=== PATIENT | female | born 1985 | race Hispanic/Latino ===

== ENCOUNTER 2018-10-05 02:42 | Inpatient (IN) | payer OTHER ==
[2018-10-05] VITALS (14 sets, daily range): BP systolic 94–135; BP diastolic 36–81
[~2018-10-05] VITALS: Ht 157.5 cm; Wt 101.8 kg
[2018-10-05 03:21] LABS: BASOPHILS % (AUTO) 0.7 % (0.0-5.0); EOSINOPHILS % (AUTO) 2.2 % (0.0-8.0); HEMATOCRIT 36.2 % (36-48); LYMPHOCYTES % (AUTO) 26.5 % (21.0-51.0); MEAN CORPUSCULAR HEMOGLOBIN 28.5 pg (27.0-33.0); MEAN CORPUSCULAR HGB CONC 34.1 g/dL (32.0-36.0); MEAN CORPUSCULAR VOLUME 83.4 fL (79-99); MONOCYTES % (AUTO) 6.8 % (3.0-13.0); NEUTROPHILS % (AUTO) 63.8 % (40.0-77.0); PLATELET COUNT (AUTO) 272 K/uL (130-400); RED BLOOD CELL COUNT(AUTO) 4.34 MIL/uL (4.00-5.50); RED CELL DISTRIBUTION WIDTH 13.4 % (11.0-15.5); WHITE BLOOD COUNT (AUTO) 10.3 K/uL (4.8-10.8)
[2018-10-05 03:28] LABS: CREATININE 0.9 mg/dL (0.5-1.5); POTASSIUM 4.5 mmol/L (3.5-5.1)
[2018-10-05 03:34] LABS: ALBUMIN 2.9 g/dL (3.5-5.0); TOTAL PROTEIN, SERUM 6.8 g/dL (6.0-8.3)
[2018-10-05 03:36] LABS: BILIRUBIN,TOTAL 0.4 mg/dL (0.2-1.0)
[2018-10-05 03:53] LABS: APPEARANCE,URINE Clear (CLEAR); BILIRUBIN,URINE Negative (NEGATIVE); COLOR,URINE Yellow (YELLOW); GLUCOSE, URINE (UA) Negative (NEGATIVE); KETONES,URINE Negative (NEGATIVE); LEUKOCYTE ESTERASE ,URINE Small (NEGATIVE); NITRATE,URINE Negative (NEGATIVE); OCCULT BLOOD,URINE Negative (NEGATIVE); PH,URINE 6.5 (5.0-8.0); PROTEIN,URINE Negative (NEGATIVE)
[2018-10-05 04:01] LABS: AMPHET/METH SCREEN,URINE NEGATIVE (NEGATIVE); BARBITURATE SCREEN, URINE NEGATIVE (NEGATIVE); BENZODIAZEPINES SCREEN,URINE NEGATIVE (NEGATIVE); CANNABINOID SCREEN,URINE NEGATIVE (NEGATIVE); COCAINE SCREEN,URINE NEGATIVE (NEGATIVE); OPIATE SCREEN,URINE NEGATIVE (NEGATIVE); PHENCYCLIDINE SCREEN,URINE NEGATIVE (NEGATIVE)
[2018-10-05 04:03] LABS: HCG,QUAL RESULT NEGATIVE (NEGATIVE)
[2018-10-05 04:07] LABS: BACTERIA,URINE None Seen /HPF (None Seen); RBC,URINE None Seen /HPF (0-1)
[2018-10-05] MEDS ORDERED: FOSPHENYTOIN SODIUM 500 MG/10ML VIAL IJ ONE (05:24)
[2018-10-05] MEDS ORDERED: DEXAMETHASONE SOD PHOSPHATE 10MG/ML 1ML VIAL ONE (05:25)
[2018-10-05] MEDS ORDERED: MORPHINE SULFATE 2 MG/ML 1ML SYG IV PRN (05:45)
[2018-10-05] MEDS: LEVETIRACETAM 1,000 MG in SODIUM CHLORIDE 0.9% 100 ML IV SCH ×3 (06:00→21:06)
[2018-10-05 06:01] LABS: INR 0.92 (0.85-1.15); PARTIAL THROMBOPLASTIN TIME 23.3 SEC (26.3-35.5); PROTHROMBIN TIME 9.7 SEC (9.6-11.6)
[2018-10-05] MEDS ORDERED: GADODIAMIDE 10 MMOL/20 ML ML IV ONE (08:03)
[2018-10-05] MEDS ORDERED: FAMOTIDINE/PF 20 MG/2 ML VIAL IV SCH (09:00)
[2018-10-05] MEDS ORDERED: DEXAMETHASONE SOD PHOSPHATE 4 MG/ML 1ML VIAL IVP SCH (09:15)
[2018-10-05] MEDS: INSULIN HUMULIN R 100 UNIT/ML 3ML SQ SCH ×3 (12:00→23:07)
[2018-10-05] MEDS ORDERED: COMPOUND IV MISC 1 EACH IVSOLN MISC PRN (12:15)
[2018-10-05] MEDS: CEFTRIAXONE SODIUM 2 GM VIAL IVP SCH (14:55)
[2018-10-05] MEDS: ENOXAPARIN SODIUM 40 MG/0.4 ML SYRINGE SQ SCH (14:55)
[2018-10-05] MEDS: LACTATED RINGERS 1000ML 1,000 ML IV SCH (14:56)
[2018-10-05] MEDS: PHENYTOIN SODIUM 100 MG ERCAP PO SCH ×2 (14:57→20:22)
[2018-10-05] MEDS: DEXAMETHASONE SOD PHOSPHATE 4 MG/ML 1ML VIAL IVP SCH ×3 (14:57→23:04)
[2018-10-05] MEDS: FAMOTIDINE 20MG TAB 20 MG TAB PO SCH (20:22)
[2018-10-05] MEDS: PROMETHAZINE/CODEINE 6.25-10MG/5ML CUP PO PRN (21:47)
[2018-10-06] VITALS (19 sets, daily range): BP systolic 97–138; BP diastolic 41–85
[2018-10-06] MEDS: LACTATED RINGERS 1000ML 1,000 ML IV SCH ×3 (04:18→20:41)
[2018-10-06 04:27] LABS: CREATININE 0.7 mg/dL (0.5-1.5); POTASSIUM 4.1 mmol/L (3.5-5.1)
[2018-10-06 04:32] LABS: HEMATOCRIT 36.2 % (36-48); MEAN CORPUSCULAR HEMOGLOBIN 28.1 pg (27.0-33.0); MEAN CORPUSCULAR HGB CONC 33.4 g/dL (32.0-36.0); MEAN CORPUSCULAR VOLUME 84.1 fL (79-99); PLATELET COUNT (AUTO) 314 K/uL (130-400); RED BLOOD CELL COUNT(AUTO) 4.31 MIL/uL (4.00-5.50); RED CELL DISTRIBUTION WIDTH 13.9 % (11.0-15.5); WHITE BLOOD COUNT (AUTO) 13.5 K/uL (4.8-10.8)
[2018-10-06] MEDS: DEXAMETHASONE SOD PHOSPHATE 4 MG/ML 1ML VIAL IVP SCH ×4 (05:05→23:28)
[2018-10-06] MEDS: INSULIN HUMULIN R 100 UNIT/ML 3ML SQ SCH ×4 (05:05→20:45)
[2018-10-06] MEDS: LEVETIRACETAM 1,000 MG in SODIUM CHLORIDE 0.9% 100 ML IV SCH ×3 (05:05→20:38)
[2018-10-06 05:18] LABS: HEMOGLOBIN A1C 5.4 % (4.0-6.0)
[2018-10-06] MEDS: ENOXAPARIN SODIUM 40 MG/0.4 ML SYRINGE SQ SCH ×2 (09:00→11:06)
[2018-10-06] MEDS: FAMOTIDINE 20MG TAB 20 MG TAB PO SCH ×2 (11:06→20:37)
[2018-10-06] MEDS: PHENYTOIN SODIUM 100 MG ERCAP PO SCH ×3 (11:07→20:38)
[2018-10-06] MEDS: ALBUTEROL SULFATE 0.083% 2.5 MG/3 ML INH IH SCH ×3 (12:33→23:20)
[2018-10-06] MEDS: IPRATROPIUM 0.5 MG/2.5 ML INH IH SCH ×3 (12:33→23:20)
[2018-10-06] MEDS: CEFTRIAXONE SODIUM 2 GM VIAL IVP SCH (13:15)
[2018-10-06] MEDS: PROMETHAZINE/CODEINE 6.25-10MG/5ML CUP PO PRN (20:38)
[2018-10-07] VITALS (29 sets, daily range): BP systolic 94–143; BP diastolic 41–97
[2018-10-07 04:03] LABS: BASOPHILS % (AUTO) 0.1 % (0.0-5.0); HEMATOCRIT 35.5 % (36-48); LYMPHOCYTES % (AUTO) 9.6 % (21.0-51.0); MEAN CORPUSCULAR HGB CONC 33.2 g/dL (32.0-36.0); MEAN CORPUSCULAR VOLUME 84.1 fL (79-99); MONOCYTES % (AUTO) 2.1 % (3.0-13.0); NEUTROPHILS % (AUTO) 88.2 % (40.0-77.0); PLATELET COUNT (AUTO) 291 K/uL (130-400); RED BLOOD CELL COUNT(AUTO) 4.22 MIL/uL (4.00-5.50)
[2018-10-07 04:22] LABS: CREATININE 0.7 mg/dL (0.5-1.5); INR 0.98 (0.85-1.15); MAGNESIUM 2.2 mg/dL (1.80-2.40); PARTIAL THROMBOPLASTIN TIME 28.2 SEC (26.3-35.5); PHOSPHORUS 4.7 mg/dL (2.5-4.9); PROTHROMBIN TIME 10.3 SEC (9.6-11.6)
[2018-10-07] MEDS: LEVETIRACETAM 1,000 MG in SODIUM CHLORIDE 0.9% 100 ML IV SCH ×3 (05:16→20:51)
[2018-10-07] MEDS: DEXAMETHASONE SOD PHOSPHATE 4 MG/ML 1ML VIAL IVP SCH ×4 (05:16→23:25)
[2018-10-07] MEDS: INSULIN HUMULIN R 100 UNIT/ML 3ML SQ SCH ×4 (05:26→20:52)
[2018-10-07] MEDS: IPRATROPIUM 0.5 MG/2.5 ML INH IH SCH ×4 (06:34→23:25)
[2018-10-07] MEDS: ALBUTEROL SULFATE 0.083% 2.5 MG/3 ML INH IH SCH ×4 (06:34→23:26)
[2018-10-07] MEDS: PHENYTOIN SODIUM 100 MG ERCAP PO SCH ×3 (09:30→20:51)
[2018-10-07] MEDS: FAMOTIDINE 20MG TAB 20 MG TAB PO SCH ×2 (09:31→20:51)
[2018-10-07] MEDS: ENOXAPARIN SODIUM 40 MG/0.4 ML SYRINGE SQ SCH (09:31)
[2018-10-07] MEDS: CEFAZOLIN SODIUM 1 GM VIAL IVP SCH (11:30)
[2018-10-07] MEDS: CEFTRIAXONE SODIUM 2 GM VIAL IVP SCH (13:04)
[2018-10-07] MEDS: PROMETHAZINE/CODEINE 6.25-10MG/5ML CUP PO PRN ×2 (16:35→21:24)
[2018-10-07] MEDS: LACTATED RINGERS 1000ML 1,000 ML IV SCH (19:05)
[2018-10-08] VITALS (27 sets, daily range): BP systolic 87–155; BP diastolic 47–86
[2018-10-08] MEDS: LACTATED RINGERS 1000ML 1,000 ML IV SCH (03:11)
[2018-10-08 03:39] LABS: HEMATOCRIT 35.6 % (36-48); MEAN CORPUSCULAR HGB CONC 33.3 g/dL (32.0-36.0); MEAN CORPUSCULAR VOLUME 84.1 fL (79-99); PLATELET COUNT (AUTO) 298 K/uL (130-400); RED BLOOD CELL COUNT(AUTO) 4.23 MIL/uL (4.00-5.50); RED CELL DISTRIBUTION WIDTH 14.1 % (11.0-15.5); WHITE BLOOD COUNT (AUTO) 11.1 K/uL (4.8-10.8)
[2018-10-08 03:46] LABS: CREATININE 0.7 mg/dL (0.5-1.5); POTASSIUM 4.2 mmol/L (3.5-5.1)
[2018-10-08 03:57] LABS: PARTIAL THROMBOPLASTIN TIME 26.7 SEC (26.3-35.5); PROTHROMBIN TIME 10.5 SEC (9.6-11.6)
[2018-10-08] MEDS: LEVETIRACETAM 1,000 MG in SODIUM CHLORIDE 0.9% 100 ML IV SCH ×3 (05:17→22:40)
[2018-10-08] MEDS: DEXAMETHASONE SOD PHOSPHATE 4 MG/ML 1ML VIAL IVP SCH ×3 (05:17→18:04)
[2018-10-08] MEDS: INSULIN HUMULIN R 100 UNIT/ML 3ML SQ SCH ×3 (05:19→18:00)
[2018-10-08] MEDS: IPRATROPIUM 0.5 MG/2.5 ML INH IH SCH ×4 (06:22→23:05)
[2018-10-08] MEDS: ALBUTEROL SULFATE 0.083% 2.5 MG/3 ML INH IH SCH ×4 (06:22→23:05)
[2018-10-08] MEDS: FAMOTIDINE 20MG TAB 20 MG TAB PO SCH ×2 (07:45→20:47)
[2018-10-08] MEDS: PHENYTOIN SODIUM 100 MG ERCAP PO SCH ×3 (07:45→20:47)
[2018-10-08] MEDS ORDERED: CEFAZOLIN SODIUM 1 GM VIAL IVP PRN (10:00)
[2018-10-08] MEDS ORDERED: BUPIVACAINE/EPI/PF 0.25% 50 ML VIAL ONE (11:46)
[2018-10-08] MEDS ORDERED: THROMBIN-JMI 20000 UNIT KIT TP ONE (11:47)
[2018-10-08] MEDS ORDERED: BACITRACIN 50,000 UNIT VIAL ONE ×2 (11:47→14:39)
[2018-10-08] MEDS ORDERED: LIDOCAINE PF 2% 5ML ABBOJECT ONE (11:59)
[2018-10-08] MEDS ORDERED: DEXAMETHASONE SOD PHOSPHATE 10MG/ML 1ML VIAL ONE ×2 (12:01→14:05)
[2018-10-08] MEDS ORDERED: GLYCOPYRROLATE 1 MG/5 ML SYRINGE ONE ×2 (12:01→16:01)
[2018-10-08] MEDS ORDERED: NEOSTIGMINE 5MG/5ML SYR IV ONE ×2 (12:01→16:01)
[2018-10-08] MEDS ORDERED: PROPOFOL 10 MG/ML 20ML VIAL IV ONE ×2 (12:01→12:48)
[2018-10-08] MEDS ORDERED: MIDAZOLAM HCL 1 MG/ML 2ML VIAL ONE ×2 (12:01→12:47)
[2018-10-08] MEDS ORDERED: ONDANSETRON HCL 4 MG/2 ML VIAL ONE (12:01)
[2018-10-08] MEDS ORDERED: ROCURONIUM 10MG/1ML SYR 10 MG/ML ML ONE ×2 (12:02→14:07)
[2018-10-08] MEDS ORDERED: FENTANYL CITRATE PF 50 MCG/1 ML 2ML VIAL ONE (12:02)
[2018-10-08] MEDS ORDERED: CEFAZOLIN SODIUM 1 GM VIAL ONE ×2 (12:30→12:31)
[2018-10-08] MEDS ORDERED: CEFTRIAXONE SODIUM 1 GM ONE (12:53)
[2018-10-08] MEDS ORDERED: ESMOLOL HCL 10 MG/ML 10 ML VIAL ONE (13:26)
[2018-10-08] MEDS: CEFAZOLIN SODIUM 1 GM VIAL IVP SCH ×2 (13:30→19:57)
[2018-10-08] MEDS ORDERED: FENTANYL CITRATE PF 50 MCG/1 ML 5ML AMP IV ONE ×3 (13:35→15:07)
[2018-10-08] MEDS: CEFTRIAXONE SODIUM 2 GM VIAL IVP SCH (13:45)
[2018-10-08] MEDS ORDERED: MANNITOL 20% 500ML BAG 500 ML IV ONE (14:23)
[2018-10-08] MEDS ORDERED: NITROGLYCERIN 50 MG/D5% WATER 1 BOT ONE (15:06)
[2018-10-08] MEDS ORDERED: MORPHINE SULFATE 2 MG/ML 1ML SYG IM PRN (17:30)
[2018-10-08] MEDS ORDERED: PHARMACY COMMUNICATION MISC SCH (17:30)
[2018-10-08] MEDS ORDERED: MORPHINE SULFATE 2 MG/ML 1ML SYG IV PRN (18:16)
[2018-10-09] VITALS (15 sets, daily range): BP systolic 103–135; BP diastolic 55–85
[2018-10-09] MEDS: DEXAMETHASONE SOD PHOSPHATE 4 MG/ML 1ML VIAL IVP SCH ×4 (01:52→17:59)
[2018-10-09] MEDS: LACTATED RINGERS 1000ML 1,000 ML IV SCH ×2 (02:03→13:08)
[2018-10-09 03:48] LABS: MEAN CORPUSCULAR HEMOGLOBIN 27.5 pg (27.0-33.0); MEAN CORPUSCULAR HGB CONC 33.3 g/dL (32.0-36.0); MEAN CORPUSCULAR VOLUME 82.7 fL (79-99); NUCLEATED RED BLOOD CELLS 0.1 % (0.0-0.19); PLATELET COUNT (AUTO) 291 K/uL (130-400); RED BLOOD CELL COUNT(AUTO) 4.47 MIL/uL (4.00-5.50); RED CELL DISTRIBUTION WIDTH 14.1 % (11.0-15.5); WHITE BLOOD COUNT (AUTO) 14.2 K/uL (4.8-10.8)
[2018-10-09 04:12] LABS: ALBUMIN 3.1 g/dL (3.5-5.0); BILIRUBIN,TOTAL 0.4 mg/dL (0.2-1.0); CREATININE 0.7 mg/dL (0.5-1.5); TOTAL PROTEIN, SERUM 7.1 g/dL (6.0-8.3)
[2018-10-09] MEDS: LEVETIRACETAM 1,000 MG in SODIUM CHLORIDE 0.9% 100 ML IV SCH ×3 (05:47→21:11)
[2018-10-09] MEDS: INSULIN HUMULIN R 100 UNIT/ML 3ML SQ SCH ×4 (05:55→18:00)
[2018-10-09] MEDS: IPRATROPIUM 0.5 MG/2.5 ML INH IH SCH ×4 (07:00→23:23)
[2018-10-09] MEDS: ALBUTEROL SULFATE 0.083% 2.5 MG/3 ML INH IH SCH ×4 (07:00→23:23)
[2018-10-09] MEDS ORDERED: MAGNESIUM 2GM PREMIX 50ML 0 ML IV ONE (07:35)
[2018-10-09] MEDS: CEFAZOLIN SODIUM 1 GM VIAL IVP SCH (08:36)
[2018-10-09] MEDS: FAMOTIDINE 20MG TAB 20 MG TAB PO SCH ×2 (08:36→21:10)
[2018-10-09] MEDS: PHENYTOIN SODIUM 100 MG ERCAP PO SCH ×3 (08:36→21:10)
[2018-10-09] MEDS: CEFTRIAXONE SODIUM 2 GM VIAL IVP SCH (13:09)
[2018-10-09] MEDS ORDERED: ACETAMINOPHEN 325 MG TAB PO PRN (14:45)
[2018-10-10] MEDS: DEXAMETHASONE SOD PHOSPHATE 4 MG/ML 1ML VIAL IVP SCH ×4 (00:02→18:29)
[2018-10-10 03:22] VITALS: BP 98/51
[2018-10-10 03:43] LABS: HEMATOCRIT 38.6 % (36-48); MEAN CORPUSCULAR HEMOGLOBIN 28.1 pg (27.0-33.0); MEAN CORPUSCULAR HGB CONC 33.4 g/dL (32.0-36.0); MEAN CORPUSCULAR VOLUME 84.2 fL (79-99); PLATELET COUNT (AUTO) 299 K/uL (130-400); RED BLOOD CELL COUNT(AUTO) 4.58 MIL/uL (4.00-5.50); RED CELL DISTRIBUTION WIDTH 13.8 % (11.0-15.5); WHITE BLOOD COUNT (AUTO) 12.5 K/uL (4.8-10.8)
[2018-10-10 04:01] LABS: ALBUMIN 2.9 g/dL (3.5-5.0); BILIRUBIN,TOTAL 0.2 mg/dL (0.2-1.0); CREATININE 0.7 mg/dL (0.5-1.5); POTASSIUM 3.9 mmol/L (3.5-5.1); TOTAL PROTEIN, SERUM 6.7 g/dL (6.0-8.3)
[2018-10-10] MEDS: LEVETIRACETAM 1,000 MG in SODIUM CHLORIDE 0.9% 100 ML IV SCH ×3 (05:39→21:45)
[2018-10-10] MEDS: INSULIN HUMULIN R 100 UNIT/ML 3ML SQ SCH ×4 (05:48→18:00)
[2018-10-10] MEDS: ALBUTEROL SULFATE 0.083% 2.5 MG/3 ML INH IH SCH ×4 (06:15→23:44)
[2018-10-10] MEDS: IPRATROPIUM 0.5 MG/2.5 ML INH IH SCH ×4 (06:15→23:44)
[2018-10-10 07:53] VITALS: BP 112/69
[2018-10-10] MEDS: FAMOTIDINE 20MG TAB 20 MG TAB PO SCH ×2 (09:57→21:45)
[2018-10-10] MEDS: PHENYTOIN SODIUM 100 MG ERCAP PO SCH ×3 (09:57→21:45)
[2018-10-10 11:12] VITALS: BP 115/69
[2018-10-10] MEDS: CEFTRIAXONE SODIUM 2 GM VIAL IVP SCH (13:34)
[2018-10-10] MEDS: LACTATED RINGERS 1000ML 1,000 ML IV SCH (13:45)
[2018-10-10 16:09] VITALS: BP 107/66
[2018-10-10 19:59] VITALS: BP 120/79
[2018-10-11] MEDS: DEXAMETHASONE SOD PHOSPHATE 4 MG/ML 1ML VIAL IVP SCH ×3 (00:02→14:30)
[2018-10-11 00:16] VITALS: BP 102/59
[2018-10-11 03:39] LABS: HEMATOCRIT 38.7 % (36-48); MEAN CORPUSCULAR HEMOGLOBIN 28.4 pg (27.0-33.0); MEAN CORPUSCULAR HGB CONC 33.7 g/dL (32.0-36.0); MEAN CORPUSCULAR VOLUME 84.2 fL (79-99); PLATELET COUNT (AUTO) 310 K/uL (130-400); RED BLOOD CELL COUNT(AUTO) 4.59 MIL/uL (4.00-5.50); RED CELL DISTRIBUTION WIDTH 13.7 % (11.0-15.5); WHITE BLOOD COUNT (AUTO) 12.9 K/uL (4.8-10.8)
[2018-10-11 03:49] LABS: CREATININE 0.6 mg/dL (0.5-1.5); MAGNESIUM 2.1 mg/dL (1.80-2.40); POTASSIUM 4.2 mmol/L (3.5-5.1)
[2018-10-11 04:00] VITALS: BP 103/64
[2018-10-11] MEDS: LEVETIRACETAM 1,000 MG in SODIUM CHLORIDE 0.9% 100 ML IV SCH (05:22)
[2018-10-11] MEDS: IPRATROPIUM 0.5 MG/2.5 ML INH IH SCH ×2 (05:52→11:11)
[2018-10-11] MEDS: ALBUTEROL SULFATE 0.083% 2.5 MG/3 ML INH IH SCH ×2 (05:52→11:11)
[2018-10-11] MEDS: INSULIN HUMULIN R 100 UNIT/ML 3ML SQ SCH ×3 (06:00→12:00)
[2018-10-11 07:00] VITALS: BP 127/70
[2018-10-11] MEDS: PHENYTOIN SODIUM 100 MG ERCAP PO SCH ×2 (08:56→14:23)
[2018-10-11] MEDS: FAMOTIDINE 20MG TAB 20 MG TAB PO SCH (08:56)
[2018-10-11 11:00] VITALS: BP 123/74
[2018-10-11] MEDS ORDERED: LEVETIRACETAM 500 MG TABLET PO SCH (14:00)
[2018-10-11] MEDS ORDERED: LEVE500T8 PO (14:05)
[2018-10-11] MEDS ORDERED: DEXA4TAB PO (14:05)
[2018-10-11] MEDS ORDERED: PHENY100 PO (14:05)
[2018-10-11] MEDS: CEFTRIAXONE SODIUM 2 GM VIAL IVP SCH (14:23)
[2018-10-11 16:00] VITALS: BP 117/61
== END 2018-10-11 18:34 | disposition home or self-care (01) | DRG 25 ==
LOC: EDH 02:42 → EDHIP 02:43 → 2CH 08:45 → 2DH 10-09 14:54
PROVIDERS: ADMIT Internal Medicine; ATTEND Internal Medicine
PROC: 00B00ZX Excision of Brain, Open Approach, Diagnostic (ICD-10-PCS; principal; 2018-10-08 13:10)
DX: G40.909 Epilepsy, unspecified, not intractable, without status epilepticus (principal); G93.6 Cerebral edema; C71.9 Malignant neoplasm of brain, unspecified; N39.0 Urinary tract infection, site not specified; Z68.41 Body mass index [BMI] 40.0-44.9, adult; T38.0X5A Adverse effect of glucocorticoids and synthetic analogues, initial encounter; E66.01 Morbid (severe) obesity due to excess calories; G47.00 Insomnia, unspecified; K59.00 Constipation, unspecified; R73.9 Hyperglycemia, unspecified; R91.8 Other nonspecific abnormal finding of lung field; D49.6 Neoplasm of unspecified behavior of brain; W19.XXXA Unspecified fall, initial encounter; Y93.89 Activity, other specified; Y99.8 Other external cause status; Y92.89 Other specified places as the place of occurrence of the external cause; Z88.8 Allergy status to other drugs, medicaments and biological substances; Z83.3 Family history of diabetes mellitus; Z82.49 Family history of ischemic heart disease and other diseases of the circulatory system
CPT/HCPCS: 36415; 70450; 70553; 71045; 76998; 80048; 80053; 80185; 80305; 81001; 81025; 82550; 82948; 83036; 83735; 84100; 85025; 85027; 85610; 85730; 87088; 88307; 93005; 94640; 94664; 99291; A4218; A4344; A9579; C1713; J0690; J0696; J1100; J1650; J1953; J2001; J2250; J2405; J2704; J2710; J3010; J3475; J3490; J7030; J7120; Q0169; Q2009